=== PATIENT | male | born 1980 | race Caucasian/White ===

== ENCOUNTER → 2018-09-28 | Outpatient (CLI) | payer BC ==
--- NOTE | 2018-09-28 20:34 | REP ---
LEFT HAND SERIES: Four views of the left hand performed. No fracture or dislocation is seen. No radiopaque foreign body is seen in the soft tissues. There are degenerative changes at the first metacarpophalangeal joint with subchondral cystic changes and spurring of the head of the first metacarpal. IMPRESSION: No evidence of fracture or foreign body. Electronically Signed by Demario Bermudez MD 09/29/2018 07:17 P
== END ==
LOC: M ADAMS 19:29
PROVIDERS: ATTEND Physician Assistant Medical
DX: S61.321A Laceration with foreign body of left index finger with damage to nail, initial encounter (principal); Y92.89 Other specified places as the place of occurrence of the external cause; Y99.9 Unspecified external cause status; Y93.9 Activity, unspecified